=== PATIENT | female | born 1995 | race Caucasian/White ===

== ENCOUNTER 2019-10-24 14:00 | Emergency (ER) | payer OTHER ==
[~2019-10-24] VITALS: Ht 165.1 cm; Wt 90.0 kg
[2019-10-24 17:58] VITALS: BP 120/70
--- NOTE | 2019-10-26 11:37 | NUR ---
Notified patients mother of positive Covid results. Advised to quarantine until [facility] contacts her with further instructions. Advised to return to ED with difficulty breathing or other urgent needs. Patient verbalized understanding.
== END 2019-10-24 17:50 | disposition home or self-care (01) ==
LOC: ED 14:00
DX: U07.1 COVID-19 (principal); F17.200 Nicotine dependence, unspecified, uncomplicated